=== PATIENT | male | born 1985 | race Caucasian/White ===

== ENCOUNTER 2022-01-29 20:43 | Emergency (ER) | payer OTHER ==
[~2022-01-29 20:43] MED LIST: AMOXICILLIN500 MG PO; CLARITIN10 MG PO; EPI EZ PEN1 MG/ML IM
== END 2022-01-29 21:34 | disposition home or self-care (01) ==
LOC: ED 20:43
DX: J70.5 Respiratory conditions due to smoke inhalation (principal); R42 Dizziness and giddiness